=== PATIENT | female | born 1975 | race Caucasian/White ===

== ENCOUNTER 2022-08-13 19:57 | Emergency (ER) | payer OTHER ==
[~2022-08-13 19:57] MED LIST: ELMIRON100 MG PO; MIRALAX POWDER255 G1 PO; PERCOCET 325 MG1 TA5 PO; PERCOCET 325 MG1 TA7 PO; PREVACID30 M3 PO; PYRIDIUM200 MG PO; ZOLOFT100 MG PO
[2022-08-13] MEDS ORDERED: PREDNISONE20 M1 PO (21:46)
== END 2022-08-13 21:59 | disposition home or self-care (01) ==
LOC: ED 19:57
DX: T63.441A Toxic effect of venom of bees, accidental (unintentional), initial encounter (principal); L50.8 Other urticaria; Z79.899 Other long term (current) drug therapy; Z91.030 Bee allergy status; Z88.1 Allergy status to other antibiotic agents; Y92.89 Other specified places as the place of occurrence of the external cause

== ENCOUNTER 2023-08-19 20:45 | Emergency (ER) | payer OTHER ==
[~2023-08-19] VITALS: Ht 160 cm; Wt 65.8 kg
[~2023-08-19 20:45] MED LIST changes: +PREDNISONE20 M1 PO
== END 2023-08-19 22:55 | disposition home or self-care (01) ==
LOC: ED 20:45
DX: S05.01XA Injury of conjunctiva and corneal abrasion without foreign body, right eye, initial encounter (principal); F41.9 Anxiety disorder, unspecified; Z91.030 Bee allergy status; Z88.1 Allergy status to other antibiotic agents; Z98.890 Other specified postprocedural states; Z98.51 Tubal ligation status; F17.210 Nicotine dependence, cigarettes, uncomplicated; W22.8XXA Striking against or struck by other objects, initial encounter; Y93.I9 Activity, other involving external motion; Y92.410 Unspecified street and highway as the place of occurrence of the external cause; Y99.8 Other external cause status

== ENCOUNTER 2025-07-17 20:48 | Emergency (ER) | payer OTHER ==
[~2025-07-17] VITALS: Ht 160 cm; Wt 68.0 kg
[2025-07-17] MEDS ORDERED: PREDNISONE50 MG PO (21:19)
[2025-07-17] MEDS ORDERED: FAMOTIDINE 20 MG TAB PO ONE (21:20)
[2025-07-17] MEDS ORDERED: diphenhydrAMINE hydrochloride 25 MG CAP PO ONE (21:20)
[2025-07-17] MEDS ORDERED: Water, Sterile 10 ML VIAL ONE (21:48)
== END 2025-07-17 21:36 | disposition home or self-care (01) ==
LOC: ED 20:48
DX: T63.441A Toxic effect of venom of bees, accidental (unintentional), initial encounter (principal); L50.9 Urticaria, unspecified; Z91.030 Bee allergy status; Z88.1 Allergy status to other antibiotic agents; Z90.49 Acquired absence of other specified parts of digestive tract; Y92.89 Other specified places as the place of occurrence of the external cause